=== PATIENT | female | born 1940 | race Caucasian/White ===

== ENCOUNTER 2018-08-25 07:48 | Outpatient (CLI) | payer MEDICARE, BC | END 2018-08-25 07:49 | disposition home or self-care (01) | LOC: BICMAMMO 07:48 | PROVIDERS: ATTEND Obstetrics & Gynecology | DX: Z12.31 Encounter for screening mammogram for malignant neoplasm of breast (principal); Z80.3 Family history of malignant neoplasm of breast | CPT/HCPCS: 77063; 77067 ==

== ENCOUNTER 2018-10-13 18:03 | Emergency (ER) | payer MEDICARE, BC ==
[2018-10-13] MEDS ORDERED: Adacel (T-DAP) 0.5 ML VIAL ONE (18:23)
[2018-10-13 18:51] LABS: #Eosinphils 0.1 thou/uL (0.0-0.7); #Monocytes 0.4 thou/uL (0.11-0.59); #Neutrophils 3.6 thou/uL (1.40-6.50); %Basophils 0.2 % (0.0-1.0); %Eosinophils 2.4 % (0.0-10.0); %Lymphocytes 19.8 % (21.0-51.0); %Monocytes 7.2 % (0.0-10.0); %Neutrophils 70.4 % (42.0-75.0); Hemoglobin 10.9 g/dL (12.0-16.0); Mean Corpuscular HGB CONC 34.3 g/dL (32.0-36.0); Mean Corpuscular Hemoglobin 30.6 pg (27.0-31.0); Mean Corpuscular Volume 89.2 fL (78.0-98.0); Mean Platelet Volume 8.2 fL (7.4-10.4); Platelet Count 166 thou/uL (130-400); RBC Distribution Width 12.2 % (11.5-14.5); Red Blood Cell (RBC) Count 3.58 mill/uL (4.20-5.40); White Blood Cell (WBC) Count 5.2 thou/uL (4.8-10.8)
[2018-10-13 19:18] LABS: ALT (SGPT) 16 U/L (8-55); AST (SGOT) 27 U/L (5-34); Albumin 3.8 g/dL (3.4-4.8); Alkaline Phosphatase 87 U/L (40-150); Anion Gap 10 mmol/L (10-20); BUN (Urea Nitrogen) 20 mg/dL (9.8-20.1); Bilirubin, Total 0.3 mg/dL (0.2-1.2); Calc. Creatinine Clearance 0 mL/min (70-130); Calcium 8.7 mg/dL (7.8-10.44); Carbon Dioxide 26 mmol/L (23-31); Chloride 104 mmol/L (98-107); Estimated GFR-MDRD 48; Globulin 3.1 g/dL (2.4-3.5); Glucose 243 mg/dL (83-110); Potassium 4.2 mmol/L (3.5-5.1); Protein, Total 6.9 g/dL (6.0-8.3); Sodium 136 mmol/L (136-145)
--- NOTE | 2018-10-13 20:18 | CT ---
CERVICAL SPINE CT WITHOUT CONTRAST: 10/13/18 COMPARISON: None. HISTORY: Fall, injury, trauma, pain. TECHNIQUE: Axial CT imaging at 2.5 mm intervals through the cervical spine with coronal and sagittal reformatted imaging. FINDINGS: The imaged lung apices appear unremarkable. There is minimal anterolisthesis at C3-4 and C4-5. The craniocervical junction and the cervicothoracic junction is intact. There is mild degenerative ch tierney at the atlantoaxial interspace. The occipital condyles, the dens, and the C1-2 articulation appear within normal limits. The C1 ring is intact. No acute fracture or dislocation. IMPRESSION: No acute findings. POS: [facility]
--- NOTE | 2018-10-13 20:21 | CT ---
HEAD CT WITHOUT CONTRAST: 10/13/18 COMPARISON: None. HISTORY: Fall, trauma, pain. FINDINGS: There is a focal area of scalp swelling in the posterior right parieto-occipital region consistent wi th recent fall and associated scalp laceration. The visualized paranasal sinuses/mastoid air cells are well aerated. There is atherosclerotic calcifi cation of the cavernous carotid arteries and the distal right vertebral artery. No displaced calvarial fracture is seen. There is a curvilinear lucency associated with the calvarium on the right in the occipital region on image 3 through 7 likely representing a vascular channel giv ing its curvilinear configuration. No intracranial hemorrhage, midline shift, mass effect or ventricular enlargement. IMPRESSION: Focal area of scalp swelling posteriorly in the right parieto-occipital region consistent with recent head trauma. There is a curvilinear lucency involving the calvarium along the inferior aspect of the occipital bone on the right for which a vascular channel is favored over fracture. POS: [facility]
[2018-10-13] MEDS ORDERED: Bacitracin Zinc 1 Packet ONE (21:21)
[2018-10-13] MEDS ORDERED: Acetaminophen 325 MG TAB ONE (21:24)
== END 2018-10-13 21:39 | disposition home or self-care (01) ==
LOC: ERS 18:03
DX: S01.01XA Laceration without foreign body of scalp, initial encounter (principal); E11.9 Type 2 diabetes mellitus without complications; E78.5 Hyperlipidemia, unspecified; I10 Essential (primary) hypertension; J40 Bronchitis, not specified as acute or chronic; F32.9 Major depressive disorder, single episode, unspecified; Z79.82 Long term (current) use of aspirin; Z79.4 Long term (current) use of insulin; Z79.899 Other long term (current) drug therapy; Z23 Encounter for immunization; W10.9XXA Fall (on) (from) unspecified stairs and steps, initial encounter; Y92.009 Unspecified place in unspecified non-institutional (private) residence as the place of occurrence of the external cause
CPT/HCPCS: 12002; 36415; 70450; 72125; 80053; 85025; 90471; 90715

== ENCOUNTER 2018-10-24 07:39 | Emergency (ER) | payer MEDICARE, BC | END 2018-10-24 08:00 | disposition home or self-care (01) | LOC: ERS 07:39 | DX: S01.01XD Laceration without foreign body of scalp, subsequent encounter (principal); E11.9 Type 2 diabetes mellitus without complications; E78.5 Hyperlipidemia, unspecified; I10 Essential (primary) hypertension; J40 Bronchitis, not specified as acute or chronic; F32.9 Major depressive disorder, single episode, unspecified; Z79.82 Long term (current) use of aspirin; Z79.899 Other long term (current) drug therapy; Z79.4 Long term (current) use of insulin; W19.XXXD Unspecified fall, subsequent encounter ==

== ENCOUNTER 2019-06-29 08:51 | Outpatient (CLI) | payer MEDICARE, BC ==
--- NOTE | 2019-06-29 14:27 | NM ---
NUCLEAR MEDICINE BRAIN IMAGIN06/29/19 HISTORY: Parkinson's disease. TECHNIQUE: A DaTscan with axial tomographic images of the brain was obtained three hours following the intraveno us administration of 4.7 millicuries of the Iodine 123 Ioflupane. The patient was pretreated with 130 mg of potassium iodide orally one hour prior to the injection. FINDINGS: There is loss of symmetric uptake in the striata bilaterally with greater decrease in tracer localiza tion in the left compared to the right. IMPRESSION: Findings are consistent with Parkinsonian syndrome. POS: [facility]
== END 2019-06-29 08:52 | disposition home or self-care (01) ==
LOC: NM 08:51
PROVIDERS: ATTEND Psychiatry & Neurology Neurology
DX: G20 Parkinson's disease (principal)
CPT/HCPCS: 78607; A9584

== ENCOUNTER 2019-11-01 13:30 | Outpatient (CLI) | payer MEDICARE, BC ==
--- NOTE | 2019-11-01 14:44 | MMO ---
Bilateral MAMMO Bilat Screen DDI+CORY. CLINICAL HISTORY: Patient is 79 years old and is seen for screening. The patient has the following family history of breast cancer: 2 paternal aunts and cousin female. The patient has no personal history of cancer. The patient has a history of right Excisional Biopsy at age 70 - benign and bilateral Excisional Biopsy in 1941 - Pt had boils lanced from both breasts when she was. VIEWS: The views performed were: bilateral craniocaudal with tomosynthesis and bilateral mediolateral oblique with tomosynthesis. FILMS COMPARED: The present examination has been compared to prior imaging studies performed at [facility] on 04/11/2015, 04/21/2016, 08/24/2017 and 08/25/2018. This study has been interpreted with the assistance of computer-aided detection. MAMMOGRAM FINDINGS: There are scattered fibroglandular densities. Finding 1: There are stable benign appearing calcifications seen in both breasts. There are also vascular calcifications. Finding 2: There is a stable biopsy clip seen in the right breast. There are no suspicious masses, suspicious calcifications, or new areas of architectural distortion. IMPRESSION: THERE IS NO MAMMOGRAPHIC EVIDENCE OF MALIGNANCY. A ROUTINE FOLLOW-UP MAMMOGRAM IN 1 YEAR IS RECOMMENDED. THE RESULTS OF THIS EXAM WERE SENT TO THE PATIENT. ACR BI-RADS Category 2 - Benign finding MAMMOGRAPHY NOTE: 1. A negative mammogram report should not delay a biopsy if a dominant of clinically suspicious mass is present. 2. Approximately 10% to 15% of breast cancers are not detected by mammography. 3. Adenosis and dense breasts may obscure an underlying neoplasm. Reported by: LO ACHARYA MD Electonically Signed: [id number]
--- NOTE | 2019-11-01 14:51 | BD ---
DEXA BONE DENSITY STUDY: Date: 11/01/19 HISTORY: Postmenopausal. FINDINGS: Lumbar Spine: BMD (g/cm2) L1 0.899 T-Score: -0.8 L2 0.933 T-Score: -0.9 L3 0.949 T-Score: -1.2 L4 0.897 T-Score: -1.5 Total 0.920 T-Score: -1.2 Left Femoral Neck: 0.679 T-Score: -1.5 Total Femur: 0.927 T-Score: -0.1 IMPRESSION: Osteopenia of the lumbar spine and left femoral neck. 10 year fracture risk for major osteoporotic fracture is 19% and for hip fracture is 4%. These fractu re probabilities are calculated for an untreated patient. POS: [facility]
== END 2019-11-01 13:31 | disposition home or self-care (01) ==
LOC: BICMAMMO 13:30
PROVIDERS: ATTEND Obstetrics & Gynecology
DX: Z12.31 Encounter for screening mammogram for malignant neoplasm of breast (principal); M85.89 Other specified disorders of bone density and structure, multiple sites; Z80.3 Family history of malignant neoplasm of breast
CPT/HCPCS: 77063; 77067; 77080

== ENCOUNTER 2019-12-14 16:08 | Emergency (ER) | payer MEDICARE, BC ==
--- NOTE | 2019-12-14 17:06 | CT ---
CT HEAD WITHOUT IV CONTRAST COMPARISON: 10/13/2018 HISTORY: Trauma. Patient fell and hit back of head. Patient reports headache. TECHNIQUE: Axial CT imaging at 5 mm intervals from vertex through skull base without contrast FINDINGS: Again noted is mild cerebral volume loss. There is no evidence of an acute infarction, hemorrhage, ma ss effect, or midline shift. The ventricular system is normal in size, shape, and position. Low-attenuation area is seen in the right hugo which is also probably present on the prior study may be attributable to chronic small vessel ischemic changes. Tiny air-fluid levels are seen in each maxillary antrum. The mastoid air cells are clear. Vascular ca lcifications are seen in the distal vertebral arteries and in the carotid siphons. Osseous structures appear intact.No calvarial fracture is seen. There is left parietal scalp soft tis nathaniel swelling identified. IMPRESSION: 1. No acute intracranial abnormality demonstrated. 2. Left parietal scalp hematoma. 3. Tiny air-fluid levels each maxillary antrum.
--- NOTE | 2019-12-14 17:11 | CT ---
EXAM: CT cervical spine PROVIDED CLINICAL HISTORY: Headache after a fall. TECHNIQUE: Contiguous axial CT images are obtained through the cervical spine from the skull base to the T2 leve l. Sagittal and coronal reformatted images are provided. COMPARISON: 10/13/2018 FINDINGS: No evidence for fracture or traumatic subluxation. Mild degenerative changes are seen. No prevertebral soft tissue swelling apparent. There does appear to be mild interstitial edema in each lung apex. There is calcification seen in the left lobe of thyroid gland with a very tiny less than 1 cm hypoden se lesion which is difficult to characterize in the left lobe of the thyroid gland. Vascular calcifications are identified. CT cervical spine is not significantly changed compared to study in 2018. IMPRESSION: No evidence for fracture or traumatic subluxation.
--- NOTE | 2019-12-14 19:09 | RAD ---
LEFT ELBOW: 12/14/19 Four views. HISTORY: Fall with injury to elbow. No evidence of fracture identified. No evidence of joint effusion. IMPRESSION: No evidence of acute fracture. POS: [facility]
[2019-12-14] MEDS ORDERED: Bacitracin 1 PK ONE (19:35)
== END 2019-12-14 20:04 | disposition home or self-care (01) ==
LOC: ERS 16:08
DX: S01.01XA Laceration without foreign body of scalp, initial encounter (principal); S50.02XA Contusion of left elbow, initial encounter; E11.9 Type 2 diabetes mellitus without complications; E78.5 Hyperlipidemia, unspecified; I10 Essential (primary) hypertension; G20 Parkinson's disease; F32.9 Major depressive disorder, single episode, unspecified; Z79.82 Long term (current) use of aspirin; Z79.899 Other long term (current) drug therapy; Z79.4 Long term (current) use of insulin; W01.10XA Fall on same level from slipping, tripping and stumbling with subsequent striking against unspecified object, initial encounter; Y92.511 Restaurant or cafe as the place of occurrence of the external cause
CPT/HCPCS: 12001; 70450; 72125; 94760

== ENCOUNTER 2019-12-15 12:30 | Inpatient (IN) | payer MEDICARE, BC ==
[2019-12-15 13:45] LABS: #Lymphocytes 0.9 thou/uL (1.20-3.40); #Monocytes 0.6 thou/uL (0.11-0.59); #Neutrophils 5.6 thou/uL (1.40-6.50); %Basophils 0.4 % (0.0-1.0); %Eosinophils 0.6 % (0.0-10.0); %Lymphocytes 12.2 % (21.0-51.0); %Monocytes 8.2 % (0.0-10.0); %Neutrophils 78.6 % (42.0-75.0); Hemoglobin 10.7 g/dL (12.0-16.0); Mean Corpuscular HGB CONC 31.4 g/dL (32.0-36.0); Mean Corpuscular Hemoglobin 30.5 pg (27.0-31.0); Mean Corpuscular Volume 97.2 fL (78.0-98.0); Mean Platelet Volume 9.5 fL (7.4-10.4); Platelet Count 105 thou/uL (130-400); White Blood Cell (WBC) Count 7.1 thou/uL (4.8-10.8)
--- NOTE | 2019-12-15 13:46 | RAD ---
PORTABLE CHEST: Date: 12/15/2019 HISTORY: Fall, hitting chair. COMPARISON: 09/18/14 study. FINDINGS: Heart size is slightly enlarged. Aortic valve prosthesis noted. Mitral annulus calcifications are pre sent. Lungs are clear of any infiltrative process. No signs of pneumothorax. There is some deformity along the posterior aspect of the left 7th and 8th ribs, and lateral aspect of what is probably eithe r the 7th or 8th rib, all compatible with acute-appearing fractures. IMPRESSION: Acute-appearing left-sided rib fractures. POS: [facility]
[2019-12-15 13:50] LABS: INR-International Normal Ratio 1.3; PTT 34.6 SEC (22.9-36.1); Prothrombin Time 16.6 SEC (12.0-14.7)
[2019-12-15 14:06] LABS: ALT (SGPT) 23 U/L (8-55); AST (SGOT) 171 U/L (5-34); Albumin 3.1 g/dL (3.4-4.8); Alkaline Phosphatase 193 U/L (40-110); Anion Gap 12 mmol/L (10-20); BUN (Urea Nitrogen) 19 mg/dL (9.8-20.1); Bilirubin, Total 1.1 mg/dL (0.2-1.2); Calc. Creatinine Clearance 0 mL/min (70-130); Calcium 8.8 mg/dL (7.8-10.44); Carbon Dioxide 29 mmol/L (23-31); Chloride 101 mmol/L (98-107); Estimated GFR-MDRD 43; Globulin 3.8 g/dL (2.4-3.5); Glucose 69 mg/dL (83-110); Potassium 4.1 mmol/L (3.5-5.1); Protein, Total 6.9 g/dL (6.0-8.3); Sodium 138 mmol/L (136-145)
[2019-12-15] MEDS ORDERED: Ondansetron PF 4 MG/2 ML Vial ONE (14:06)
[2019-12-15] MEDS ORDERED: Morphine 4 MG/ML VIAL ONE (14:06)
--- NOTE | 2019-12-15 14:19 | CT ---
Exam: Chest, abdomen, and pelvic CT scan without IV contrast: HISTORY: Injury from a fall, contrast allergy. Exam done without IV contrast There are displaced rib fractures involving the posterior left RIBS including 7, 8, 9, and 10th ribs. There also essentially nondisplaced fractures involving the lateral left RIBS including the sixth, seventh, eighth, and ninth lateral ribs. Minimal patchy parenchymal changes in the left lower chest p robably subsegmental atelectasis. No evidence for significant size left-sided pneumothorax. Heterogeneous bony demineralization. No mediastinal mass, adenopathy, or abnormal fluid collection. Multiple gallstones without CT evidence for acute cholecystitis. Splenomegaly at 16 cm. No focal live r masses. Visualized pancreas and adrenal glands are unremarkable. No renal calculus or acute obstruction. Small fat-containing umbilical hernia. No free intraperitoneal fluid or retroperitoneal hematoma. No evidence for acute lumbar thoracic spine fracture. Bony demineralization with multilevel spondylos is and some associated variable severity stenosis. IMPRESSION: Multiple left-sided rib fractures as above. Minimal linear stranding in the lower lung zones, possibl y mild subsegmental atelectasis versus chronic change. No significant pneumothorax. Cholelithiasis without acute cholecystitis. Splenomegaly. No significant free intraperitoneal fluid or hemorrhage wi thin the abdomen or pelvis. Exam is limited particularly in regards to solid organ evaluation given lack of contrast.
[2019-12-15 15:49] LABS: Bacteria/HPF None Seen HPF (None Seen); Bilirubin Negative (Negative); Blood, Urine Negative (Negative); Clarity Clear (Clear); Glucose, Urine (Dipstick) Normal (Negative); Leukocyte 500 Leu/uL (Negative); Nitrite Negative (Negative); Protein, Urine (Dipstick) Negative (Neg-Trace); RBC/HPF 0-3 HPF (0-3); Squamous Epithelial 0-3 HPF (0-3); Urobilinogen Normal mg/dL (Less than 2); WBC/HPF 21-50 HPF (0-3)
[2019-12-15] MEDS ORDERED: Dextrose 5% in Water 1,000 ML IV PRN (16:37)
[2019-12-15] MEDS ORDERED: Insulin Regular 300 UNITS/3 ML VIAL SC PRN ×2 (16:37)
[2019-12-15] MEDS ORDERED: Ondansetron ODT 4 MG TAB PO PRN (16:37)
[2019-12-15] MEDS ORDERED: Ondansetron PF 4 MG/2 ML Vial IVP PRN (16:37)
[2019-12-15] MEDS ORDERED: Dextrose 50% Abboject 50 ML SYRINGE SLOW IVP PRN (16:37)
[2019-12-15] MEDS ORDERED: hydrALAZINE 20 MG/ML VIAL SLOW IVP PRN (16:37)
[2019-12-15] MEDS ORDERED: Sodium Chloride 0.9% 1,000 ML IV SCH (16:45)
[2019-12-15] MEDS ORDERED: traMADol HCl 50 MG TAB PO PRN (16:48)
[2019-12-15] MEDS ORDERED: Cyclobenzaprine 10 MG TAB PO PRN (16:49)
[2019-12-15 17:01] LABS: Magnesium 2.4 mg/dL (1.6-2.6); Phosphorus 2.9 mg/dL (2.3-4.7)
[2019-12-15] MEDS: traMADol HCl 50 MG TAB PO SCH ×2 (18:19→23:03)
[2019-12-15] MEDS: Acetaminophen 500 MG TAB PO SCH ×2 (18:20→23:03)
--- NOTE | 2019-12-15 20:42 | HP ---
This is Moraima Witt NP dictating a report for Eyad Pearce MD. CHIEF COMPLAINT: Multiple falls. HISTORY OF PRESENT ILLNESS: This is a 79-year-old female, who presented to the emergency room with complaints of frequent multiple falls. The patient was seen in the emergency room last night around 4:00 a.m., as she fell and hit her head. The patient was worked up and patient's head laceration was repaired with francisco javier. The patient did not have any head bleed at that time. The patient was discharged back home. The patient has a recent new history of Parkinson's and has been having medication adjustments. The patient has been very unsteady and reports that her equilibrium is off. The patient uses a walker to ambulate. The patient also reports some new bilateral lower leg edema. The patient fell again today onto her left side causing her to have multiple left-sided rib fractures, both lateral and posterior. The patient did not lose consciousness or hit her head when she fell today. REVIEW OF SYSTEMS: A 10-point review of systems is negative unless otherwise indicated in the above HPI. PRIMARY CARE PHYSICIAN: Dmitry Khan MD PAST MEDICAL HISTORY: Type 2 diabetes, hyperlipidemia, hypertension, valvular heart disease, valve replacement, diverticulitis, Parkinson's, depression. PAST SURGICAL HISTORY: Valve replacement surgery, cataract surgery, hysterectomy. SOCIAL HISTORY: The patient lives at home with her . Denies any alcohol use. Denies history of smoking. ALLERGIES: CODEINE, ESTROGEN, IODINE, IVP DYE, LATEX, NITROFURANTOIN, NYSTATIN, PREMARIN. CURRENT MEDICATIONS: 1. Aspirin 81 mg daily. 2. Metoprolol 12.5 mg twice a day. 3. Vitamin D3 of 5000 units. 4. Furosemide 40 mg once a day. 5. Metformin 1000 mg once a day. 6. Tylenol 500 mg twice a day. 7. Sertraline 150 mg at bedtime. 8. Atorvastatin 10 mg once a day. 9. Fenofibrate 145 mg daily. 10. Treseba insulin 10 units once a day. PHYSICAL EXAMINATION: VITAL SIGNS: Blood pressure 160/63, pulse 80, respirations 14, temperature 97.9 , SpO2 of 93% on room air. GENERAL: Elderly appearing female, lying in hospital bed, in no acute distress. HEENT: Head is normocephalic. Ecchymosis to left lateral neck. [place] in place to posterior head wound. Pupils are equal bilateral. Mucous membranes are dry. NECK: Normal range of motion. Trachea is midline. No cervical tenderness. RESPIRATORY: Bilateral breath sounds clear, good inspiratory and expiratory effort. No wheezing, rales or rhonchi. No respiratory distress. CARDIOVASCULAR: Regular rate, regular rhythm, systolic her heart murmur. ABDOMEN: Soft, nontender, and nondistended. EXTREMITIES: Moves all extremities, distal pulses 2+ in all extremities. Bilateral lower legs with +1 pitting pedal edema. NEUROLOGIC: GCS 15. No focal deficits. LABORATORY DATA: WBC 7.1, RBC 3.50, hemoglobin 10.7, hematocrit 34, platelets 105. PT 16.6, INR 1.3, APTT 34.6. Sodium 138, potassium 4.1, chloride 101, carbon dioxide 29, anion gap 12, BUN 19, creatinine 1.22, estimated GFR 43, glucose 69, calcium 8.8, phosphorus 2.9, magnesium 2.4, AST 171, alkaline phos 193, albumin 3.1. Urinalysis; negative nitrites, positive leukocyte esterase, no bacteria, positive wbc's. DIAGNOSTIC DATA: Chest x-ray, impression, acute appearing left-sided rib fractures. No signs of pneumothorax. Posterior ribs 7 and 8 on lateral aspect of 7 and 8. Chest, abdomen and pelvis CT, multiple left-sided rib fractures, minimal linear stranding in the lower lung zones, possibly mild segmental atelectasis versus chronic change. No significant pneumothorax. IMPRESSION: 1. Multiple frequent falls. 2. Multiple left-sided rib fractures. 3. Acute traumatic pain. 4. Head laceration from fall yesterday. Francisco Javier in place. 5. Acute on chronic kidney injury. 6. History of Parkinson's with new medication adjustments, heart valve replacement, hypertension, type 2 diabetes, depression. PLAN: Admit the patient to OBS for pain management. Aggressive pulmonary toilet with incentive spirometer use every hour while awake. Neb treatments as needed. We will have PT and OT work with the patient. We will place a rehab screen as the patient has had multiple recent falls and lives at home with her . We will also get a speech consult as the patient has had some difficulty with swallowing. We will place the patient on insulin sliding scale. The plan will be discussed with the attending after this dictation. Job ID: [id number] [facility]
[2019-12-15 21:01] VITALS: BMI 23.8
[2019-12-15] MEDS: Senokot S 8.6-50 MG TAB PO SCH (21:05)
[2019-12-15] MEDS: Gabapentin 100 MG CAP PO SCH (21:05)
[2019-12-15] MEDS ORDERED: Carbidopa/Levodopa 25-100 mg Tablet PO SCH (22:45)
[2019-12-15] MEDS ORDERED: Triple Antibiotic Oint 1 GM Packet TOP PRN (23:19)
--- NOTE | 2019-12-16 00:57 | PRG ---
DATE OF SERVICE: 12/15/2019 SUBJECTIVE: This is a 79-year-old female, who is hospital day zero, status post multiple falls resulting in multiple rib fractures. Upon my evaluation, the patient verbalized no complaints. She reports that her pain is well controlled. Patient reports that she has been on Lasix for lower extremity edema x2 months. She further reports a history of dizziness associated with her falls. Patient does have a history of aortic valve disease. She is concerned that her blood sugar is too low when these episodes occur. OBJECTIVE: VITAL SIGNS: Reviewed and stable. GENERAL: Elderly-appearing female, in no acute distress, resting in bed. PULMONARY: Normal work of breathing. Symmetric rise. CARDIOVASCULAR: Regular rate and rhythm. GI: Abdomen soft, nontender, and nondistended. MUSCULOSKELETAL: Moves all extremities x4. NEUROLOGIC: No focal deficit is noted. ASSESSMENT: 1. Status post frequent falls. 2. Multiple left-sided rib fractures. 3. Acute traumatic pain. 4. Head laceration from fall the day prior to admission, status post repair, 12/14/2019. 5. Acute on chronic kidney injury. 6. History of Parkinson's. 7. History of valvular heart disease. 8. History of hypertension. 9. Diabetes. PLAN: Evolve orthostatic vital signs. Upon further review of the patient history, she has not had an echocardiogram in greater than five years. As the patient is reporting dizziness upon standing and associated with her falls, we will add this to her orders. Although BNP mildly elevated, patient did present with ILDA, possibly associated with Lasix use. She is receiving gentle supplementary IV fluids. This will be continued overnight and discontinued early in the morning. Rehab screen has been placed. PT/OT in the morning and Case Management for eventual disposition. Plan of care was discussed with the patient at bedside and all questions were answered prior to this dictation. Job ID: [id number]
[2019-12-16] MEDS: Acetaminophen 500 MG TAB PO SCH ×4 (05:17→23:20)
[2019-12-16] MEDS: traMADol HCl 50 MG TAB PO SCH ×4 (05:17→23:21)
[2019-12-16 05:29] LABS: Anion Gap 13 mmol/L (10-20); BUN (Urea Nitrogen) 17 mg/dL (9.8-20.1); Calc. Creatinine Clearance 49 mL/min (70-130); Calcium 7.9 mg/dL (7.8-10.44); Carbon Dioxide 25 mmol/L (23-31); Chloride 101 mmol/L (98-107); Estimated GFR-MDRD 67; Magnesium 2.3 mg/dL (1.6-2.6); Phosphorus 2.6 mg/dL (2.3-4.7); Potassium 3.9 mmol/L (3.5-5.1); Sodium 135 mmol/L (136-145)
[2019-12-16 05:33] LABS: Glucose 44 mg/dL (83-110)
[2019-12-16 06:58] LABS: Band 3 % (5-11); Eosinophils 3 % (0-10); Hemoglobin 9.2 g/dL (12.0-16.0); Lymphocytes 20 % (21-51); MDiff Complete? YES; Mean Corpuscular HGB CONC 31.5 g/dL (32.0-36.0); Mean Corpuscular Hemoglobin 30.8 pg (27.0-31.0); Mean Corpuscular Volume 97.7 fL (78.0-98.0); Mean Platelet Volume 9.3 fL (7.4-10.4); Monocytes 4 % (0-10); Neutrophil 70 % (42-75); Platelet Count 97 thou/uL (130-400); Platelet Morphology Comment Appears Decreased; RBC Distribution Width 12.8 % (11.5-14.5); Red Blood Cell (RBC) Count 2.98 mill/uL (4.20-5.40); White Blood Cell (WBC) Count 6.9 thou/uL (4.8-10.8)
[2019-12-16] MEDS: Gabapentin 100 MG CAP PO SCH ×3 (09:39→22:09)
[2019-12-16] MEDS: Carbidopa/Levodopa 25-100 mg Tablet PO SCH ×2 (09:40→22:10)
[2019-12-16] MEDS: Senokot S 8.6-50 MG TAB PO SCH ×2 (09:41→22:08)
[2019-12-16] MEDS: Polyethylene Glycol 3350 17 GM Packet PO SCH (09:41)
[2019-12-16 11:18] LABS: Hemoglobin A1c 4.6 % (4.0-6.0)
[2019-12-16] MEDS ORDERED: Loratadine 10 MG TAB PO PRN (14:30)
--- NOTE | 2019-12-16 17:06 | PDOC.BPN ---
- Brief Progress Note I have discussed the patient with Nicole Witt in addition to reviewing her studies and conducting a brief H/P. I agree with her note and findings. Briefly , this is a 79yo female status post multiple falls with left 6-10 rib fractures. She has a recent diagnosis of Parkinson's disease and has had multiple medication changes recently. The etiology of her falls is unclear. She has been evaluated by rehabilitation services and is pending acceptance where they will continue to evaluate her in a non-acute setting. Patient actively participating in rib fracture protocol with incentive spirometry.
[2019-12-16] MEDS ORDERED: Carbidopa/Levodopa 25-100 mg Tablet PO SCH (21:00)
--- NOTE | 2019-12-16 21:16 | PRG ---
DATE OF SERVICE: 12/16/2019 SUBJECTIVE: The patient was seen this morning during rounds. Awake and alert, no distress. The patient reports that her pain is well controlled and she is tolerating a regular diet. The patient is using her incentive spirometer only able to pull 700ml, family reports she just received the incentive spirometer this morning. The patient did have some overnight hypoglycemia. The patient was given one amp of D50 with good response. The patient has not worked with physical therapy at this morning. She reports her pain is controlled. OBJECTIVE: VITAL SIGNS: Temperature 98.0, pulse 81, respirations 18, SpO2 of 94% on room air, blood pressure 137/60. GENERAL: Elderly female, sitting up in hospital bed, in no acute distress. RESPIRATORY: Equal breath sounds bilateral, good inspiratory and expiratory effort. EXTREMITIES: Moves all extremities. No focal deficits. NEUROLOGIC: GCS 15. LABORATORY DATA: WBC 6.9, RBC 2.98, hemoglobin 9.2, hematocrit 29.1, platelets 97. Sodium 135; potassium 3.9; chloride 101; BUN 17; creatinine 0.82; estimated GFR 67; glucose 44, recheck was 46, after D50, the patient increased to 199. The patient's hemoglobin A1c is 4.6, calcium 7.9, phosphorus 2.6, magnesium 2.3. DIAGNOSTICS: There are no new diagnostics to review. ASSESSMENT: 1. Multiple frequent falls. 2. Multiple left-sided rib fractures. 3. Acute traumatic pain. 4. Head laceration from fall, previous ER visits, [place] in place. 5. Acute on chronic kidney injury, improved. 6. History of Parkinson's with new medication adjustments, heart valve replacement, hypertension, diabetes type 2, and depression. PLAN: Continue aggressive pulmonary toilet. Continue neb treatments as needed. Continue pain management. Continue to have patient work with physical and occupational therapy. The patient was evaluated by inpatient rehab and is pending bed availability. We will stop the patient's sliding scale and likely her home oral antidiabetic medications as her hemoglobin A1c is well below goal. The plan was discussed with Dr. Pearce who agrees. Job ID: [id number] [facility]
[2019-12-16] MEDS: Atorvastatin Calcium 10 MG TAB PO SCH (22:09)
[2019-12-16] MEDS: Entacapone 200 mg Tablet PO SCH (22:10)
[2019-12-16] MEDS: Fenofibrate Nanocrystallized 145 MG TAB PO SCH (22:10)
[2019-12-16] MEDS: Metoprolol Tartrate 25 MG TAB PO SCH (22:18)
--- NOTE | 2019-12-17 00:37 | PRG ---
DATE OF SERVICE: 12/16/2019 SUBJECTIVE: The patient was seen this evening during rounds. She was sitting up in bed with no signs of acute distress. Daughter at bedside reported they were using the incentive spirometer together. Pain is slightly limiting her capabilities. However, more aggressive pain medication appears to make her quite sleepy. OBJECTIVE: VITAL SIGNS: Temperature 98.3, pulse 87, respirations 16, oxygen saturation 95% on room air, blood pressure 130/64. GENERAL: Elderly female, sitting up in bed with no signs of acute distress. PULMONARY: Equal chest rise and fall. No signs of acute respiratory distress. ASSESSMENT: 1. Status post multiple falls. 2. Multiple right-sided rib fractures, head laceration, status post repair. 3. Acute kidney injury on chronic kidney disease, resolved. 4. History of Parkinson's, heart valve replacement, hypertension, diverticulitis, diabetes, bronchitis, and depression. PLAN: Continue current regular diet and pain regimen. Continue physical and occupational therapy. The patient reports a history of diabetes and taking medications; however, she was very hypoglycemic when she came in, so we have put her on a regular diet and discontinued her home diabetes medications. She is pending placement at acute rehab facility. Job ID: [id number]
[2019-12-17] MEDS: traMADol HCl 50 MG TAB PO SCH ×2 (05:20→18:25)
[2019-12-17] MEDS: Acetaminophen 500 MG TAB PO SCH ×3 (05:20→17:46)
[2019-12-17] MEDS: Entacapone 200 mg Tablet PO SCH ×2 (09:13→22:14)
[2019-12-17] MEDS: Polyethylene Glycol 3350 17 GM Packet PO SCH (09:14)
[2019-12-17] MEDS: Furosemide 20 MG TAB PO SCH (09:15)
[2019-12-17] MEDS: Senokot S 8.6-50 MG TAB PO SCH ×2 (09:15→22:14)
[2019-12-17] MEDS: Carbidopa/Levodopa 25-100 mg Tablet PO SCH ×2 (09:15→22:10)
[2019-12-17] MEDS: Multivit, Therapeutic 1 TAB PO SCH (09:15)
[2019-12-17] MEDS: Gabapentin 100 MG CAP PO SCH (09:15)
[2019-12-17] MEDS: Metoprolol Tartrate 25 MG TAB PO SCH ×2 (09:16→22:12)
[2019-12-17] MEDS: Aspirin 81 mg Enteric Coated Tablet PO SCH (09:16)
[2019-12-17] MEDS: Losartan 25 MG TAB PO SCH (09:17)
[2019-12-17] MEDS ORDERED: traMADol HCl 50 MG TAB PO PRN ×2 (13:16)
[2019-12-17] MEDS: Ferrous Sulfate 325 MG TAB PO SCH (13:17)
--- NOTE | 2019-12-17 16:48 | PRG ---
DATE OF SERVICE: 12/17/2019 SUBJECTIVE: The patient remains on the surgical floor. She is status post ground-level fall, when she sustained multiple right-sided rib fractures, scalp laceration, and [id number] kidney injury. The patient overnight had no issues, though this morning the believed that the patient was being a little bit more drowsy than normal. He suspected it was from the new medicine that we started her on. She otherwise is tolerating her diet and her pain is controlled and she has been able to work with Physical Therapy. PHYSICAL EXAMINATION: VITAL SIGNS: Temperature is 98.9, heart rate 82, respirations 14, oxygen saturation 97% on 1 L via nasal cannula, and blood pressure 137/55. GENERAL: The patient is resting comfortably in bed. She appears in no distress. She is appropriate and interactive. LUNGS: Scattered wheezes bilaterally that improved after cough. HEART: Regular rate and rhythm. ABDOMEN: Soft, flat, and nontender with active bowel sounds. EXTREMITIES: Neurovascularly intact x4. LABORATORY DATA: There are no labs or radiographs to review this morning. ASSESSMENT AND PLAN: 1. Status post multiple falls. 2. Multiple right-sided rib fractures. 3. Scalp laceration, status post repair. 4. Uertr-so-leguxzv kidney disease, resolved. 5. History of Parkinson disease. 6. History of heart valve replacement, hypertension, diverticulitis, diabetes, bronchitis, and depression. PLAN: Plan will be to continue supportive care. We will schedule DuoNeb as the nurses report that she has had occasions to drop her oxygen saturation down as low as 88. We will encourage incentive spirometry use, out of bed, and discuss placement tomorrow. Job ID: [id number]
[2019-12-17] MEDS: Ibuprofen 200 MG TAB PO SCH ×2 (17:46→22:12)
[2019-12-17] MEDS ORDERED: ADALIMUMAB SC SCH (20:00)
[2019-12-17] MEDS: Atorvastatin Calcium 10 MG TAB PO SCH (22:12)
[2019-12-17] MEDS: Fenofibrate Nanocrystallized 145 MG TAB PO SCH (22:14)
[2019-12-18] MEDS ORDERED: Insulin Regular 300 UNITS/3 ML VIAL SC PRN ×2 (00:29)
[2019-12-18] MEDS ORDERED: Furosemide 20 MG/2 ML VIAL SLOW IVP SCH (00:45)
[2019-12-18 01:00] LABS: Mean Corpuscular HGB CONC 31.1 g/dL (32.0-36.0); Mean Corpuscular Hemoglobin 30.3 pg (27.0-31.0); Mean Corpuscular Volume 97.5 fL (78.0-98.0); RBC Distribution Width 13.1 % (11.5-14.5)
[2019-12-18 01:18] LABS: Anion Gap 16 mmol/L (10-20); BUN (Urea Nitrogen) 26 mg/dL (9.8-20.1); Calc. Creatinine Clearance 27 mL/min (70-130); Calcium 8.3 mg/dL (7.8-10.44); Carbon Dioxide 20 mmol/L (23-31); Chloride 96 mmol/L (98-107); Estimated GFR-MDRD 33; Glucose 176 mg/dL (83-110); Magnesium 2.5 mg/dL (1.6-2.6); Phosphorus 4.4 mg/dL (2.3-4.7); Potassium 4.4 mmol/L (3.5-5.1); Sodium 128 mmol/L (136-145)
[2019-12-18 01:24] LABS: Band 10 % (5-11); Lymphocytes 2 % (21-51); MDiff Complete? YES; Mean Platelet Volume 9.2 fL (7.4-10.4); Monocytes 3 % (0-10); Neutrophil 85 % (42-75); Platelet Count 142 thou/uL (130-400); White Blood Cell (WBC) Count 16.5 thou/uL (4.8-10.8)
[2019-12-18 01:28] VITALS: BP 132/64
[2019-12-18] MEDS: Acetaminophen 500 MG TAB PO SCH ×5 (02:34→22:14)
[2019-12-18 04:06] LABS: Magnesium 2.6 mg/dL (1.6-2.6); Phosphorus 4.3 mg/dL (2.3-4.7)
[2019-12-18 04:50] LABS: Band 10 % (5-11); Hemoglobin 10.5 g/dL (12.0-16.0); Lymphocytes 8 % (21-51); MDiff Complete? YES; Mean Corpuscular HGB CONC 31.5 g/dL (32.0-36.0); Mean Corpuscular Hemoglobin 30.6 pg (27.0-31.0); Mean Platelet Volume 9.3 fL (7.4-10.4); Monocytes 6 % (0-10); Neutrophil 76 % (42-75); Platelet Count 165 thou/uL (130-400); RBC Distribution Width 13.2 % (11.5-14.5); Red Blood Cell (RBC) Count 3.44 mill/uL (4.20-5.40); White Blood Cell (WBC) Count 19.8 thou/uL (4.8-10.8)
[2019-12-18] MEDS ORDERED: Sodium Chloride 0.9% 500 ML IV SCH (05:00)
[2019-12-18] MEDS: cefTRIAXone\\ROCEPHIN 1 GM in Sodium Chloride 0.9% 100 ML IVPB SCH (05:24)
[2019-12-18 06:29] LABS: Actual Bicarbonate (HCO3a) 24.3 mEq/L (22-28); CO2 Tension 38.2 mmHg (35.0-45.0); Calcium, Ionized 1.09 mmol/L (1.12-1.30); Carboxyhemoglobin (COHb) 1.1 gm% (0.0-3.0); Hemoglobin (Hb) 11.2 g/dL (12.0-16.0); Potassium - ABG Lab 4.34 mmol/L (3.70-5.30); pH, Arterial 7.42 (7.35-7.45)
[2019-12-18 06:34] LABS: O2 Tension (PaO2) 51.3 mmHg (> 70.0); Puncture Site RRAD
--- NOTE | 2019-12-18 07:43 | RAD ---
EXAM: CHEST ONE VIEW HISTORY: Shortness of breath COMPARISON: 12/15/2019 FINDINGS: Postsurgical changes related to median sternotomy and cardiac valve replacement are again noted. Card iac silhouette is magnified by projection. There has been interval increase in bilateral perihilar interstitial densities greater on the right when compared to prior exam with minimal alveolar opaciti es also present. These findings may be attributable to asymmetric pulmonary edema versus developing infectious process. There is question of tiny left pleural effusion. Calcifications mitral valve d[place] eliud are noted with vascular calcifications in thoracic aorta. Left-sided rib fractures are again seen. No pneumothorax is appreciated. IMPRESSION: 1. Interval increase in bilateral perihilar interstitial and to a lesser extent alveolar opacities wi thin the lungs greater on the right. Findings may be related to asymmetric pulmonary edema or possibly developing infectious process. 2. Suggestion of tiny left pleural effusion. 3. Left-sided rib fractures.
[2019-12-18] MEDS: Heparin 5,000 UNITS/ML VIAL SC SCH ×2 (10:15→22:10)
[2019-12-18] MEDS: Losartan 25 MG TAB PO SCH (10:31)
[2019-12-18] MEDS: Metoprolol Tartrate 25 MG TAB PO SCH ×2 (10:31→22:10)
[2019-12-18] MEDS: Carbidopa/Levodopa 25-100 mg Tablet PO SCH ×2 (10:31→22:09)
[2019-12-18] MEDS: Entacapone 200 mg Tablet PO SCH ×2 (10:31→22:11)
[2019-12-18] MEDS: Aspirin 81 mg Enteric Coated Tablet PO SCH (10:31)
[2019-12-18] MEDS: Senokot S 8.6-50 MG TAB PO SCH ×2 (10:32→22:10)
[2019-12-18] MEDS: Multivit, Therapeutic 1 TAB PO SCH (10:32)
[2019-12-18] MEDS: Polyethylene Glycol 3350 17 GM Packet PO SCH (10:32)
[2019-12-18] MEDS ORDERED: Furosemide 40 MG/4 ML VIAL SLOW IVP SCH (11:00)
[2019-12-18] MEDS: Ferrous Sulfate 325 MG TAB PO SCH (12:01)
[2019-12-18 12:19] LABS: Bilirubin Negative (Negative); Blood, Urine Negative (Negative); Clarity Clear (Clear); Glucose, Urine (Dipstick) Normal (Negative); Leukocyte Negative Leu/uL (Negative); Nitrite Negative (Negative); Protein, Urine (Dipstick) 10 mg/dL (Neg-Trace); RBC/HPF 0-3 HPF (0-3); Urobilinogen Normal mg/dL (Less than 2); WBC/HPF 0-3 HPF (0-3)
[2019-12-18 12:20] LABS: Bacteria/HPF 1+ HPF (None Seen)
--- NOTE | 2019-12-18 13:04 | RAD ---
ABDOMEN 1 VIEW: HISTORY: Dobbhoff tube placement evaluation. FINDINGS: There is a Dobbhoff tube which extends into the stomach with the tip being at approximately the body of the stomach level. Several minimally dilated loops of small bowel. IMPRESSION: Dobbhoff tube tip at approximately the level of the body of the stomach. Minimally dilated small bow el loops. POS: [facility]
[2019-12-18] MEDS ORDERED: diphenhydrAMINE 50 MG/ML VIAL IVP SCH (13:30)
[2019-12-18] MEDS ORDERED: Haloperidol Lactate 5 MG/ML VIAL SLOW IVP SCH (13:30)
--- NOTE | 2019-12-18 15:50 | ULT ---
EXAM: Bilateral lower extremity venous Doppler HISTORY: Recent falls, contrast allergy. Patient with rib pain and back pain. Pain is greater when taking deep breaths. Patient does have left-sided rib fractures and shortness of breath. FINDINGS: Grayscale, color-flow, Doppler evaluation, spectral analysis of the bilateral lower extremities venou s structures is performed with 2-D imaging. The bilateral common femoral, superficial femoral, popliteal, posterior tibial, proximal greater saphenous and profunda femoral veins are imaged. Limited evaluation of the bilateral lower extremity venous structures due to patient's agitation and constant moving. However, there does appear to be normal luminal compressibility, flow, and augmentation in the visualized deep venous structures of the bilateral lower extremities. IMPRESSION: No evidence of a deep vein thrombosis in the visualized deep venous structures bilateral lower extrem ities.
[2019-12-18] MEDS ORDERED: Lorazepam 2 MG/ML VIAL ONE (15:53)
[2019-12-18] MEDS ORDERED: Lorazepam 2 MG/ML VIAL SLOW IVP SCH (17:30)
--- NOTE | 2019-12-18 17:44 | PRG ---
DATE OF SERVICE: 12/18/2019 SUBJECTIVE: Ms. Bailey is a 79-year-old woman with history of Parkinson disease , which has become progressive over the last several weeks according to the patient's family. The patient fell from a ground level position, hitting her head on 12/15/2019. She has had frequent falls at home. In this last fall, the patient sustained multiple left-sided rib fractures. Scalp laceration was repaired. She sustained acute on chronic kidney injury which was present on this admission. Overnight, the patient has become severely agitated and hypoxemic, requiring escalating supplementation of oxygen and ultimately the patient was placed on BiPAP overnight. This morning, she is awake, but agitated, requiring soft restraints to minimize injury to the person. Urinary output has been marginal. OBJECTIVE: VITAL SIGNS: This morning include blood pressure 119/50, pulse is 95, respiratory rate is 17, maximum temperature in last 24 hours is 98.5 degrees Fahrenheit, oxygen saturation 94% on FiO2, 50% on BiPAP. HEENT: Left pupil is 3 mm, right is 2, both are reactive to light. Her Venus Coma Scale is E4, V3, M6. HEART: Reveals regular rate and rhythm. No murmurs or gallops auscultated. LUNGS: Reveal scattered rhonchi. Breathing regular and unlabored. ABDOMEN: Soft, nontender, and nondistended. Liver and spleen nonpalpable below costal margin. NEUROLOGIC: Reveals no focal deficits present. EXTREMITIES: Reveal 2+ radial and pedal pulses bilaterally. No ankle edema is present. IMAGING: I have reviewed the chest x-ray today which reveals increasing perihilar markings and alveolar opacification. There are no significant pleural effusions noted. LABORATORY FINDINGS: Include a CBC with 19,800 white blood cells, hemoglobin and hematocrit 10.5 and 33.4 respectively. Platelet count is 165,000. Differential counts as follows; 76% segmented neutrophils 10 bands, 8 lymphocytes, and 6 monocytes. Metabolic profile; sodium is 128, potassium is 4.4, chloride is 96, bicarb is 20 , BUN 26, creatinine is 1.51, glucose is 176, magnesium 2.6, and phosphorus 4.3. BNP is 673.1. D-dimer is elevated at 1.66 mcg/mL. IMPRESSION: 1. Post injury day #4, status post ground level fall. 2. Multiple left rib fractures. 3. Acute kidney injury. 4. Acute hypoxic encephalopathy. 5. Acute pulmonary edema. 6. Acute Pulmonary Insufficiency PLAN: I discussed the above findings with the patient's family at bedside including the high probability for acute pulmonary embolism which would require anticoagulation with added risk of hemorrhage given the recent trauma. The patient's family have indicated the unwillingness to proceed with aggressive care. They have wished that the patient be placed on DNAR at this time and to this extent. A consultation with palliative care is solicited for possible hospice care. The family also knowing that the noncritical care interventions may lead to the patient's demise. This discussion was had in the presence of the patient's nurse at bedside. I have answered all the family's questions. Job ID: [id number] [facility]ALTH[facility]a
[2019-12-18] MEDS: Atorvastatin Calcium 10 MG TAB PO SCH (22:13)
[2019-12-18] MEDS: Fenofibrate Nanocrystallized 145 MG TAB PO SCH (22:14)
[2019-12-19] MEDS: Lorazepam 2 MG/ML VIAL SLOW IVP PRN ×3 (00:37→11:58)
[2019-12-19] MEDS: Morphine 2 MG/ML SYRINGE SLOW IVP PRN ×3 (00:46→10:15)
--- NOTE | 2019-12-19 00:47 | PRG ---
DATE OF SERVICE: 12/19/2019 SUBJECTIVE: The patient is currently on the critical care unit. She has been overflowed from [facility], where she was transferred last night after hypoxic episode, requiring BiPAP. Today, day team specifically Dr. Martinez had a lengthy discussion with the family regarding prognosis of the patient and they made the patient DNAR and asked for palliative care consultation. The patient is essentially on comfort measures at this time and at the time of my visit, the patient was resting comfortably and tolerating her BiPAP. OBJECTIVE: VITAL SIGNS: Stable. She is afebrile. GENERAL: She is resting comfortably in bed. She would open her eyes to family verbal at times, but the nurse reports that she had just been given pain medicine. LUNGS: Have scattered rhonchi, right greater than left. ABDOMEN: Soft, flat, nontender with hypoactive bowel sounds. EXTREMITIES: The patient does move all of her extremities, but they appear to be more spasm related. ASSESSMENT: 1. Status post ground level fall hospital day 4. 2. Multiple left rib fractures. 3. Acute on chronic kidney injury. 4. Acute hypoxic encephalopathy. 5. Acute pulmonary edema. PLAN: Plan will be to continue supportive/comfort measures for the patient. Palliative care consult in the morning to discuss hospice. Job ID: [id number]
[2019-12-19] MEDS: cefTRIAXone\\ROCEPHIN 1 GM in Sodium Chloride 0.9% 100 ML IVPB SCH (05:33)
[2019-12-19] MEDS: Acetaminophen 500 MG TAB PO SCH ×2 (05:34→09:44)
[2019-12-19] MEDS ORDERED: Sodium Chloride 0.9% 1,000 ML IV SCH (07:30)
[2019-12-19] MEDS: Entacapone 200 mg Tablet PO SCH (09:42)
[2019-12-19] MEDS: Carbidopa/Levodopa 25-100 mg Tablet PO SCH (09:42)
[2019-12-19] MEDS: Furosemide 20 MG TAB PO SCH (09:42)
[2019-12-19] MEDS: Aspirin 81 mg Enteric Coated Tablet PO SCH (09:42)
[2019-12-19] MEDS: Multivit, Therapeutic 1 TAB PO SCH (09:43)
[2019-12-19] MEDS: Losartan 25 MG TAB PO SCH (09:43)
[2019-12-19] MEDS: Polyethylene Glycol 3350 17 GM Packet PO SCH (09:43)
[2019-12-19] MEDS: Heparin 5,000 UNITS/ML VIAL SC SCH (09:43)
[2019-12-19] MEDS: Senokot S 8.6-50 MG TAB PO SCH (09:43)
[2019-12-19] MEDS: Metoprolol Tartrate 25 MG TAB PO SCH (09:43)
[2019-12-19] MEDS: Ferrous Sulfate 325 MG TAB PO SCH (09:44)
[2019-12-19 12:01] VITALS: TEMP 98.4
[2019-12-19] MEDS ORDERED: Lorazepam 2 MG/ML VIAL SLOW IVP PRN ×2 (12:02→13:51)
[2019-12-19] MEDS ORDERED: Albumin 5% 0 ML ONE (12:36)
[2019-12-19] MEDS ORDERED: Morphine 2 MG/ML SYRINGE SLOW IVP PRN (13:51)
--- NOTE | 2019-12-20 06:14 | DIS ---
DATE OF ADMISSION: 12/18/2019 DATE OF DISCHARGE: 12/19/2019 DATE OF : 12/19/2019. ADMITTING PHYSICIAN: Eyad Pearce MD DISCHARGING PHYSICIAN: Jareth Martinez DO ADMITTING DIAGNOSES: 1. Status post ground level fall. 2. Multiple left rib fractures. 3. Scalp lacerations. 4. Acute on chronic kidney injury. DISCHARGE DIAGNOSES: 1. Status post ground level fall. 2. Multiple left rib fractures. 3. Scalp lacerations. 4. Acute on chronic kidney injury. 5. Acute cardiopulmonary arrest. HISTORY AND HOSPITAL COURSE: A 79-year-old woman suffered a ground level fall on 12/15/2019. The patient was evaluated in the emergency department, found with multiple left rib fractures as well as a scalp laceration, which was repaired. She had pre-existing history of severe Parkinson's disease and by the patient's family's account, had been decompensating over the previous 3 weeks. Adequate pain management was instituted. However, the patient developed persistent acute hypoxemic respiratory failure. DVT was excluded. Pulmonary embolism was highly suspected, but could not be proven with CT angiography as the patient's acute kidney injury was a relative contraindication for contrast administration. We discussed the above with the patient's and adult daughters. Family decided to pursue comfort care measures only and suspending all critical care resuscitative efforts. The patient despite being on noninvasive mechanical ventilator support, the patient remained relatively hypoxemic with oxygen saturation in the low 90s. All family's arrived at bedside and requested that the patient be removed from noninvasive mechanical ventilator support and placed on room air. They did so knowing that this would certainly lead to the patient's demise. The patient was placed on room air with family at bedside and soon went into asystole and pronounced at 1407 hours. Job ID: [id number]
--- NOTE | 2019-12-21 10:16 | PQF ---
NAHID ROWE VINCENT U [id number] CLINICAL DOCUMENTATION CLARIFICATION FORM: POST DISCHARGE Addendum to original discharge summary date: ____ Late entry note date: __ DATE: 12/21/2019 ATTN:JARETH MARTINEZ Please exercise your independent, professional judgment in responding to the clarification form. Clinical indicators are provided on the bottom of this form for your review Please check appropriate box(s): [ ] Acute pulmonary edema due to trauma [ x] Acute pulmonary edema not due to trauma [ ] Other diagnosis [ ] Unable to determine In addition, please specify: Present on Admission (POA): [ ] Yes [ ] No X ] Unable to determine For continuity of documentation, please document condition throughout progress notes and discharge summary. Thank You. CLINICAL INDICATORS - SIGNS / SYMPTOMS / LABS Multiple frequent falls-Documented in H&P on 12/15 by Moraima Witt Multiple left sided rib fractures-Documented in H&P on 12/15 by Moraima Witt Acute pulmonary edema-Documented in PN on 12/18 by Jareth Martinez DO The patient has become severely agitated and hypoxemic -Documented in PN on by Jareth Martinez DO RISK FACTORS Multiple frequent falls-Documented in H&P on 12/15 by Moraima Witt TREATMENTS: Aggressive pulmonary toilet with incentive spirometer use every hour while awake -Documented in H&P on 12/15 by Moriama Witt Patient was placed on BiPAP overnight-Documented in PN on 12/18 by Jareth Martinez DO Lasix 40 mg PO daily-Documented in Medication snapshot [employer] (This form is maintained as a part of the permanent medical record) 2014 [employer] All Rights Reserved [email or web address]
--- NOTE | 2019-12-23 06:15 | PQF ---
NAHID ROWE VINCENT U [id number] CLINICAL DOCUMENTATION CLARIFICATION FORM: POST DISCHARGE Addendum to original discharge summary date: ____ Late entry note date: __ DATE:12/23/2019 ATTN:LU MERCEDES Please exercise your independent, professional judgment in responding to the clarification form. Clinical indicators are provided on the bottom of this form for your review Please check appropriate box(s): Kindly specify Stage of CKD [ ] Chronic kidney disease stage 1 [ ] Chronic kidney disease stage 2 [x ] Chronic kidney disease stage 3 [ ] Chronic kidney disease stage 4 [ ] Chronic kidney disease stage 5 [ ] ESRD [ ] Other diagnosis [ ] Unable to determine In addition, please specify: Present on Admission (POA): [ x ] Yes [ ] No [ ] Unable to determine National Kidney Foundation Guidelines for CKD Staging Stage I Kidney damage with normal or increased GFRGFR > 90 Stage IIKidney damage with mildly decreased GFRGFR 60-89 Stage III Kidney damage with moderately decreased GFRGFR 30-59 Stage IVKidney damage with severely decreased GFRGFR 16-29 Stage VKidney failureGFR<15 ESRDEnd Stage Renal DiseaseOn dialysis For continuity of documentation, please document condition throughout progress notes and discharge summary. Thank You. CLINICAL INDICATORS - SIGNS / SYMPTOMS / LABS BUN-19, Creatinine-1.22,Estimated [id number] in H&P on 12/15 by Moraima Witt Pitting pedal edema-Documented in H&P on 12/15 by Moraima Witt Acute on chronic kidney injury-Documented in H&P on 12/15 by Moraima Witt Acute on chronic kidney injury improved-Documented in PN on 12/16 by Ponzio, Moraima AGACNP-BC RISK FACTORS HTN-Documented in H&P on 12/15 by Moraima WittP-BC Type 2 DM-Documented in H&P on 12/15 by Moraima Witt-BC TREATMENTS: She is receiving gentle supplementary IV fluids.This will be continued overnight -Documented in PN on 12/16 by Karine Aguilar PA-C [employer] (This form is maintained as a part of the permanent medical record) 2014 [employer]. All Rights Reserved [email or web address]
== END 2019-12-19 14:07 | disposition expired | DRG 183 ==
LOC: ERS 12:30 → SURG A 16:00 → CCU 12-18 03:13 → OBSVTOIN 12-18 04:12
PROVIDERS: ADMIT Surgery; ATTEND Surgery
PROC: 0DH67UZ Insertion of Feeding Device into Stomach, Via Natural or Artificial Opening (ICD-10-PCS; 2019-12-15)
PROC: 0HQ0XZZ Repair Scalp Skin, External Approach (ICD-10-PCS; 2019-12-15)
PROC: 5A09457 Assistance with Respiratory Ventilation, 24-96 Consecutive Hours, Continuous Positive Airway Pressure (ICD-10-PCS; principal; 2019-12-18)
DX: S22.42XA Multiple fractures of ribs, left side, initial encounter for closed fracture (principal); J96.01 Acute respiratory failure with hypoxia; J81.0 Acute pulmonary edema; N17.9 Acute kidney failure, unspecified; G93.1 Anoxic brain damage, not elsewhere classified; S01.01XA Laceration without foreign body of scalp, initial encounter; Z66 Do not resuscitate; I46.9 Cardiac arrest, cause unspecified; G20 Parkinson's disease; Z51.5 Encounter for palliative care; E78.5 Hyperlipidemia, unspecified; F32.9 Major depressive disorder, single episode, unspecified; N18.3 Chronic kidney disease, stage 3 (moderate); E11.22 Type 2 diabetes mellitus with diabetic chronic kidney disease; I12.9 Hypertensive chronic kidney disease with stage 1 through stage 4 chronic kidney disease, or unspecified chronic kidney disease; R40.2412 Glasgow coma scale score 13-15, at arrival to emergency department; Z91.81 History of falling; E11.649 Type 2 diabetes mellitus with hypoglycemia without coma; G89.11 Acute pain due to trauma; Z88.5 Allergy status to narcotic agent; Z95.2 Presence of prosthetic heart valve; Z98.49 Cataract extraction status, unspecified eye; Z90.710 Acquired absence of both cervix and uterus; Z88.8 Allergy status to other drugs, medicaments and biological substances; Z91.041 Radiographic dye allergy status; W18.39XA Other fall on same level, initial encounter; Y93.89 Activity, other specified; Y92.098 Other place in other non-institutional residence as the place of occurrence of the external cause
CPT/HCPCS: 12001; 36415; 36416; 70450; 71045; 71250; 72125; 74018; 74177; 80048; 80053; 81001; 81003; 81015; 82805; 83036; 83735; 83880; 84100; 85007; 85025; 85027; 85379; 85610; 85730; 87077; 87086; 87186; 93306; 93970; 94640; 94660; 94760; 96374; 96375; 99214; G0463; J0696; J1200; J1630; J1644; J1940; J2060; J2270; J2405; J3490; J7620; P9045